=== PATIENT | male | born 1965 | race Two or more races ===

== ENCOUNTER 2018-08-23 07:42 | Day surgery (SDC) | payer OTHER ==
[~2018-08-23 07:42] MED LIST: CIPROFLOXACIN PO; CLONAZEPAM0.5 MG PO; ENALAPRIL MALEA10 MG PO; GABAPENT PO; PENTOXIFYLLINE400 MG PO; TRAZODONE HCL50 MG PO
[2018-08-23] MEDS ORDERED: PERCOCET 5-3251 EACH PO (12:27)
[2018-08-23] MEDS ORDERED: COLACE100 MG PO (12:27)
== END 2018-08-23 16:20 | disposition home or self-care (01) ==
LOC: CIR.AMB 07:42
DX: K60.3 Anal fistula (principal); K62.89 Other specified diseases of anus and rectum